=== PATIENT | female | born 1965 | race Caucasian/White ===

== ENCOUNTER → 2016-12-09 | Outpatient (CLI) | payer BC ==
[2016-05-01 17:33] VITALS: BP 143/69
[2016-12-09 18:07] LABS: CRYPTOSPORIDIUM PARVUM ANTIGEN NEGATIVE (NEGATIVE); GIARDIA LAMBLIA ANTIGEN NEGATIVE (NEGATIVE)
== END | disposition home or self-care (01) | DRG 392 ==
LOC: LAB 15:45
PROVIDERS: ATTEND Internal Medicine Gastroenterology
DX: R10.13 Epigastric pain (principal); R19.7 Diarrhea, unspecified; Z79.01 Long term (current) use of anticoagulants; R11.2 Nausea with vomiting, unspecified; R10.84 Generalized abdominal pain; F17.200 Nicotine dependence, unspecified, uncomplicated; G43.909 Migraine, unspecified, not intractable, without status migrainosus; B96.89 Other specified bacterial agents as the cause of diseases classified elsewhere
CPT/HCPCS: 87045; 87328; 87329; 87336; 87427; 87493; 87899

== ENCOUNTER → 2017-01-01 | Outpatient (CLI) | payer BC ==
[2016-05-01 17:33] VITALS: BP 143/69
== END ==
LOC: LAB 09:14
PROVIDERS: ATTEND Internal Medicine Gastroenterology
DX: K25.3 Acute gastric ulcer without hemorrhage or perforation (principal); R11.0 Nausea; F17.200 Nicotine dependence, unspecified, uncomplicated; A04.7 Enterocolitis due to Clostridium difficile; R63.0 Anorexia
CPT/HCPCS: 87493

== ENCOUNTER 2017-02-25 21:57 | Emergency (ER) | payer OTHER ==
[2017-02-25 22:08] VITALS: BP 141/66; BMI 21.2
== END 2017-02-25 23:45 | disposition left against medical advice (07) ==
LOC: ER 22:04
DX: R10.84 Generalized abdominal pain (principal)
CPT/HCPCS: 99281

== ENCOUNTER 2017-12-03 12:10 | Emergency (ER) | payer OTHER ==
[2017-12-03 12:15] VITALS: BP 137/73; BMI 19.8
--- NOTE | 2017-12-03 12:51 | DR.SOBA ---
HPI - Time Seen Time seen: 11:15 - Primary Care Physician Primary Care Physician: AURA KRUSE CART DRIVER - Complaints Chief Complaint:: PT STATES THAT SHE THINKS SHE HAS BRONCHITIS AND SHE HAS SOB, CCC AND THAT SHE WENT TO SEE PAT ON AND SHE GOT 2 SHOTS OF ROCEPHIN AND STEROIDS AND SHE REC'D 2 SHOT'S YESTERDAY , BR Self Treatment fo Chief Complaint: PT WAS PLACED ON LEVAQUIN,,,, - Reviewed Nurses Notes Reviewed: Yes - Source History Provided: Patient - Mode of Arrival Mode of Arrival: Ambulatory - Timing Onset of Chief Complaint: 11/28/17 - Context PE Risk Factors:: None History of:: COPD Currently on:: Inhaled Bronchodilators, Steroids Prehospital Care:: Inhaled B2 - Modifying Factors Worsens:: Exertion - Associated Signs and Symptoms Associated Signs and Symptoms: Cough - If Cough Cough: Productive PMH - PMH Past Medical History: Yes Past Medical History: Dyslipidemia, GERD Past Surgical History: Yes Surgical History: , Cholecystectomy, Hysterectomy, Tonsillectomy - Family History History of Family Medical Conditions: Yes Family Medical History: Cancer - Social History Does patient currently use any type of tobacco product: Yes Type of Tobacco Use: None How many years tobacco product used: 30 Does any household member use tobacco: No Alcohol Use: None Do you use any recreational Drugs:: No Lives With: Family Lives Where: Home - infectious screening In the last 2 months have you had wt loss of >10#?: NO Have you had fever, night sweats or hemotysis?: No Have you traveled outside the country in the last 6 months?: No Isolation: Standard ROS - Review of Systems Constitutional: No Symptoms Reported Eyes: No Symptoms Reported ENTM: No Symptoms Reported Respiratoy: Productive Cough, Short of Breath Cardiovascular: No Symptoms Reported Gastrointestinal/Abdominal: No Symptoms Reported Genitourinary: No Symptoms Reported Neurological: No Symptoms Reported Musculoskeletal: No Symptoms Reported Integumentary: No Symptoms Reported Hematologic/Lymphatic: No Symptoms Reported Endocrine: No Symptoms Reported Psychiatric: No Symptoms Reported All Other Systems: Reviewed and Negative PE - Vital Signs Vitals: Temperature 97.2 F Pulse Rate 112 Respiratory Rate 18 Blood Pressure 137/73 O2 Sat by Pulse Oximetry 95 - General Limitations: No Limitations General Appearance: Alert, In No Apparent Distress - Head Head Exam: Normal Inspection - Eyes Eye exam: Normal Appearance - ENT ENT Exam: Normal Exam - Neck Neck Exam: Normal Inspection, Full ROM, Trachea Midline - Chest Chest Inspection: Normal Inspection - Respiratory Respiratory Exam: Bilateral Rhonchi (bibasilar) - Cardiovascular Cardiovascular Exam: Regular Rate, Normal Rhythm, +S1, +S2 - Abdominal Exam Abdominal Exam: Normal Inspection, Normal Bowel Sounds, Soft - Extremities Extremities Exam: Normal Inspection - Back Back Exam: Normal Inspection - Neurologic Neurological Exam: Alert, Oriented X3 - Psychiatric Psychiatric Exam: Normal Affect, Normal Mood - Skin Skin Exam: Warm, Dry, Intact, Normal Color - Diagnosis Discharge Problem: Dyspnea, Bronchitis - Discharge Plan Disposition: HOME, SELF-CARE Condition: Stable - Follow ups/Referrals Follow ups/Referrals: MAGED KRUSE [Primary Care Provider] - 3 days - Instructions Instructions: Shortness of Breath, Adult, [id number]
--- NOTE | 2017-12-03 13:31 | RAD ---
Examination: AP chest History: SOB Comparison 09/15/2014 Findings: Continued normal transverse heart diameter with essentially clear lungs and pleural spaces. Impression: No significant change or acute chest findings. Reported By:
== END 2017-12-03 13:47 | disposition home or self-care (01) ==
LOC: ER 12:24
DX: J40 Bronchitis, not specified as acute or chronic (principal); R06.00 Dyspnea, unspecified; Z72.0 Tobacco use
CPT/HCPCS: 71045; 99282

== ENCOUNTER 2017-12-13 18:54 | Emergency (ER) | payer OTHER ==
[2017-12-13 19:01] VITALS: BP 130/61; BMI 19.8
--- NOTE | 2017-12-14 11:54 | DR.GENAD ---
HPI - PCP Primary Care Physician: melvina - Complaint/Symptoms Chief Complaint:: pt states" i been hving this sharp pain under my ribs rt here " pt points to below her left ribs - Source History Provided: Patient - Mode of Arrival Mode of Arrival: Ambulatory - Timing Onset of Chief Complaint: 12/13/17 Came on: Suddenly PMH - PMH Past Medical History: Yes Past Medical History: Dyslipidemia, GERD Past Surgical History: Yes Surgical History: , Cholecystectomy, Hysterectomy, Tonsillectomy - Family History History of Family Medical Conditions: Yes Family Medical History: Cancer - Social History Type of Tobacco Use: Cigarettes Does any household member use tobacco: No Alcohol Use: None Do you use any recreational Drugs:: No Lives With: Family Lives Where: Home - infectious screening In the last 2 months have you had wt loss of >10#?: NO Have you had fever, night sweats or hemotysis?: No Have you traveled outside the country in the last 6 months?: No Isolation: Standard PE - Vital Signs Vitals: Temperature 97.7 F Pulse Rate 83 Respiratory Rate 20 Blood Pressure 130/61 O2 Sat by Pulse Oximetry 97 - Discharge Plan Disposition: LWBS After Triage Condition: Stable - Follow ups/Referrals Follow ups/Referrals: MAGED KRUSE [Primary Care Provider] - 3 days - Instructions
== END 2017-12-13 20:44 | disposition left against medical advice (07) ==
LOC: ER 19:19
DX: R07.81 Pleurodynia (principal)
CPT/HCPCS: 99281

== ENCOUNTER 2023-02-03 11:28 | Observation (INO) ==
[2023-02-03 11:46] VITALS: BMI 20.5
[2023-02-03] MEDS ORDERED: DECADRON INJ IVP ONE (11:46)
[2023-02-03] MEDS ORDERED: DUONEB 0.5 MG/3 MG (3 mL) NEB ONE ×2 (11:46→11:54)
[2023-02-03] MEDS ORDERED: DECADRON INJ ONE (11:55)
--- NOTE | 2023-02-03 12:08 | DR.SOBA ---
HPI Time Seen Time Seen by Provider: 02/03/23 11:38 Primary Care Physician Primary Care Physician: SKYE SOUTH Complaints Chief Complaint Doctors Comments: 58 y/o female presents for evaluation. Started feeling ill yesterday. + cough, not productive, fever, chills, aches. + degree of dyspnea. Pt with a h/o COPD, still smokes (up until yesterday), saw [facility] yesterday. Was treated with meds. Feeling worse today. Chief Complaint:: PT C/O HAVING SOB FOR 2 DAYS PT DENIES ANY C/P PT STATES SHE WENT TO SEE SKYE SOUTH AND HE HEARD SOME WHEEZING AND SHE WAS GIVENS MEDS, BR Self Treatment fo Chief Complaint: TESSALON PEARLS , LEVAQUIN , AND STEROID DOSE PACK. COVID-19 Coronavirus risk:travel/contact w/high risk person: No Has patient experienced Coronavirus symptoms: Yes Coronavirus symptoms experienced: Shortness of Breath Reviewed Nurses Notes Reviewed: Yes Source History Provided: Patient Mode of Arrival Mode of Arrival: EMS Timing Onset of Chief Complaint: 02/01/23 PMH PMH Past Medical History: Yes Past Medical History: Depression, Dyslipidemia, GERD and Hypertension Past Surgical History: Yes Surgical History: , Cholecystectomy, Hysterectomy, Ortho Surgery and Tonsillectomy Family History History of Family Medical Conditions: Yes Family Medical History: Cancer, Heart Failure and Hypertension Social History Does patient currently use any type of tobacco product: Yes Have you used tobacco products in the last 12 months: Yes Type of Tobacco Use: Cigarettes How many years tobacco product used: 35 Does any household member use tobacco: No Alcohol Use: None Do you use any recreational Drugs:: No Lives With: Family Lives Where: Home Travel Risk Coronavirus risk:travel/contact w/high risk person: No Has patient experienced Coronavirus symptoms: Yes Coronavirus symptoms experienced: Shortness of Breath Infectious screening In the last 2 months have you had wt loss of >10#?: NO Have you had fever, night sweats or hemotysis?: No Have you traveled outside the country in the last 6 months?: No Isolation: Respiratory ROS Review of Systems Constitutional: Chills, Fever and Weakness Eyes: No Symptoms Reported ENTM: No Symptoms Reported Respiratoy: Non-Productive Cough and Short of Breath Cardiovascular: No Symptoms Reported Gastrointestinal/Abdominal: No Symptoms Reported Genitourinary: No Symptoms Reported Neurological: No Symptoms Reported Musculoskeletal: No Symptoms Reported Integumentary: No Symptoms Reported Hematologic/Lymphatic: No Symptoms Reported Psychiatric: No Symptoms Reported All Other Systems: Reviewed and Negative PE Vital Signs Vitals: Temperature 98.1 F Pulse Rate 62 Respiratory Rate 20 Blood Pressure [Left Arm] 115/55 Blood Pressure 122/57 O2 Sat by Pulse Oximetry 92 General General Appearance: Alert and In No Apparent Distress Eyes Eye exam: PERRL and EOMI ENT ENT Exam: Normal Exam, Normal Oropharynx, Mucous Membranes Moist and TM's Normal Bilaterally Neck Neck Exam: Normal Inspection Respiratory Respiratory Exam: Other (+ bilateral expiratory wheezing); negative Accessory Muscle Use or Respiratory Distress Abdominal Exam Abdominal Exam: Normal Inspection, Normal Bowel Sounds and Soft; negative Tenderness Extremities Extremities Exam: Normal Inspection; negative Edema Neurologic Neurological Exam: Alert, Oriented X3 and CN II-XII Intact; negative Motor Sensory Deficit Skin Skin Exam: Warm and Dry COURSE Treatment Treatment: 58 y/o female , h/o COPD, ill since yesterday. W/u initiated. Pt given IV decadron and duoneb treatment here. 1457 - + for type B flu. CBC, CMP acceptable. CXR - + COPD changes, no obvious pneumonia. Pt taken off O2 - drops to 89% pulse ox at rest. Does not have O2 or nebulizer at home. Discussed with her attending, Dr Trevino, will admit for observation. ROR Labs Reviewed Laboratory Results Reviewed?: Yes Result Diagrams: 02/03/23 11:57 02/03/23 11:57 Laboratory: WBC 7.2 X10^3/uL (3.6-10.0) 02/03/23 11:57 RBC 4.68 X10^6/uL (3.5-5.4) 02/03/23 11:57 Hgb 14.4 g/dL (12.0-16.0) 02/03/23 11:57 Hct 43.0 % (36.0-47.0) 02/03/23 11:57 MCV 91.8 fL (80.0-100.0) 02/03/23 11:57 MCH 30.8 pg (27.0-34.0) 02/03/23 11:57 MCHC 33.5 g/dL (33.0-35.0) 02/03/23 11:57 RDW 14.0 % (11.6-16.5) 02/03/23 11:57 Plt Count 225 X10^3/uL (150.0-450.0) 02/03/23 11:57 MPV 8.6 fL (7.4-11.0) 02/03/23 11:57 Neut % (Auto) 75.5 % (42.0-75.0) H 02/03/23 11:57 Lymph % (Auto) 11.4 % (21.0-51.0) L 02/03/23 11:57 [place] % (Auto) 12.6 % (0.0-13.0) 02/03/23 11:57 Eos % (Auto) 0.0 % (0.9-2.9) L 02/03/23 11:57 Baso % (Auto) 0.5 % (0.2-1.0) 02/03/23 11:57 Neut # (Auto) 5.4 x10^3/uL (2.2-4.8) H 02/03/23 11:57 Lymph # (Auto) 0.8 X10^3/uL (1.3-2.9) L 02/03/23 11:57 Thomas # (Auto) 0.9 x10^3/uL (0.3-0.8) H 02/03/23 11:57 Eos # (Auto) 0.0 x10^3/uL (0.0-0.2) 02/03/23 11:57 Baso # (Auto) 0.0 X10^3/uL (0.0-0.1) 02/03/23 11:57 Absolute Nucleated RBC 0.1 /100WBC 02/03/23 11:57 Sodium 139 mmol/L (136-145) 02/03/23 11:57 Corrected Sodium TNP 02/03/23 11:57 Potassium 4.5 mmol/L (3.5-5.1) 02/03/23 11:57 Chloride 100 mmol/L (98-107) 02/03/23 11:57 Carbon Dioxide 30.7 mmol/L (21-32) 02/03/23 11:57 BUN 22 mg/dL (7-18) H 02/03/23 11:57 Creatinine 1.38 mg/dL (0.55-1.02) H 02/03/23 11:57 Est GFR (MDRD) Af Amer 51 (>60) L 02/03/23 11:57 Est GFR (MDRD) Non-Af 42 (>60) L 02/03/23 11:57 Glucose 96 mg/dL (65-99) 02/03/23 11:57 Calcium 8.8 mg/dL (8.5-10.1) 02/03/23 11:57 Corrected Calcium TNP 02/03/23 11:57 Total Bilirubin 0.20 mg/dL (0.2-1.0) 02/03/23 11:57 AST 73 Units/L (15-37) H 02/03/23 11:57 ALT 97 Units/L (12-78) H 02/03/23 11:57 Alkaline Phosphatase 101 Units/L (46-116) 02/03/23 11:57 Troponin I High Sens 5.2 ng/L (4.0-60.0) 02/03/23 11:57 Total Protein 7.8 g/dL (6.4-8.2) 02/03/23 11:57 Albumin 3.9 g/dL (3.4-5.0) 02/03/23 11:57 Globulin 3.9 g/dL (2.5-4.5) 02/03/23 11:57 Albumin/Globulin Ratio 1.0 Ratio (1.1-2.1) L 02/03/23 11:57 SARS-CoV-2 (PCR) Negative (NEGATIVE) 02/03/23 11:38 Influenza Type A (PCR) Negative (NEGATIVE) 02/03/23 11:38 Influenza Type B (PCR) Positive (NEGATIVE) A 02/03/23 11:38 RSV (PCR) Negative (NEGATIVE) 02/03/23 11:38 Lasb acceptable. + type B flu XRAY XRAY Interpreted by: Both X-ray Results: + COPD, no acute abnormalities Opioid Opioid Risk Tool Age (José Miguel box if 16-45): No History of Preadolescent Sexual Abuse: No Total: 0 Total Score Risk Category: Low Risk Copyright: Christoph NAGEL predicting aberrant behaviors Discharge Plan Diagnosis Discharge Problem: COPD with acute exacerbation, Type B influenza Discharge Plan Patient Disposition: 09 ADMITTED INPATIENT Condition: Stable
[2023-02-03 12:24] LABS: BASOPHILS % (AUTO) 0.5 % (0.2-1.0); HEMOGLOBIN 14.4 g/dL (12.0-16.0); LYMPHOCYTES # (AUTO) 0.8 X10^3/uL (1.3-2.9); LYMPHOCYTES % (AUTO) 11.4 % (21.0-51.0); MEAN CORPUSCULAR HEMOGLOBIN 30.8 pg (27.0-34.0); MEAN CORPUSCULAR HGB CONC 33.5 g/dL (33.0-35.0); MEAN CORPUSCULAR VOLUME 91.8 fL (80.0-100.0); MEAN PLATELET VOLUME 8.6 fL (7.4-11.0); MONOCYTES # (AUTO) 0.9 x10^3/uL (0.3-0.8); MONOCYTES % (AUTO) 12.6 % (0.0-13.0); NEUTROPHILS # (AUTO) 5.4 x10^3/uL (2.2-4.8); NEUTROPHILS % (AUTO) 75.5 % (42.0-75.0); PLATELET COUNT 225 X10^3/uL (150.0-450.0); RED BLOOD COUNT 4.68 X10^6/uL (3.5-5.4); WHITE BLOOD COUNT 7.2 X10^3/uL (3.6-10.0)
[2023-02-03 12:38] LABS: ALANINE AMINOTRANSFERASE 97 Units/L (12-78); ALBUMIN 3.9 g/dL (3.4-5.0); ALKALINE PHOSPHATASE 101 Units/L (46-116); ASPARTATE AMINO TRANSFERASE 73 Units/L (15-37); BLOOD UREA NITROGEN 22 mg/dL (7-18); CALCIUM 8.8 mg/dL (8.5-10.1); CARBON DIOXIDE 30.7 mmol/L (21-32); CHLORIDE 100 mmol/L (98-107); CREATININE 1.38 mg/dL (0.55-1.02); GLUCOSE 96 mg/dL (65-99); POTASSIUM 4.5 mmol/L (3.5-5.1); SODIUM 139 mmol/L (136-145); TOTAL PROTEIN 7.8 g/dL (6.4-8.2); eGFR NON BLACK RACES 42 (>60)
[2023-02-03] MEDS ORDERED: TAMIFLU PO STA (15:22)
--- NOTE | 2023-02-03 15:26 | RAD ---
HISTORYSOB GERD, DYSLIPIDEMIA SX: CSECTION, ESTEFANIA, HYSTERECTOMY, TONSILLECTOMY, ORTHOSTUDYCHEST, 1 VIEWCOMPARISONChest x-ray 05/21/2022FINDINGSThe heart is normal in size. The pulmonary vasculature is within normal limits. The lungs appear clear. No pneumothorax, pleural effusion, or focal consolidation. No acute osseous abnormality.IMPRESSIONNo acute cardiopulmonary findings .Electronically signed by: Marcin Victor (February 03, 2023 15:22:56)
[2023-02-03] MEDS ORDERED: TAMIFLU PO ONE (15:28)
[2023-02-03] MEDS ORDERED: NS 250 ML IV 250 ML IV ONE (16:40)
[2023-02-03] MEDS: DUONEB 0.5 MG/3 MG (3 mL) NEB SCH ×2 (16:40→21:00)
--- NOTE | 2023-02-03 16:41 | DR.H&P ---
H&P History & Physical for Day of: H&P Date: 02/03/23 Chief Complaint Chief Complaint: Shortness of breath x2 days. Allergies Allergies Allergy/AdvReac Type Severity Reaction Status Date / Time metronidazole [From Flagyl] Allergy Unknown Verified 02/02/23 09:47 venlafaxine [From Effexor] Allergy Verified 02/02/23 09:47 History of Present Illness History of Present Illness: This is a 58-year-old white female who I saw in the office yesterday and started treating her for COPD exacerbation. She woke up yesterday morning with these acute symptoms. I started treating her with Levaquin, Medrol Dosepak and Tussionex cough medicine. I did a flu swab here in the office but however it was negative for type a and B flu. She was getting worse today and more hypoxic so she went to the emergency department where they tested her again and she was positive for type B influenza. She was satting 89% on room air. Because of that we elected to go ahead and admit her to the hospital to give her supplemental O2 and started on Tamiflu. She is a longtime smoker and also has COPD exacerbation along with this influenza going to treat her with IV Rocephin and Levaquin along with IV Solu-Medrol. She is receiving jet nebs and we will continue to do this until tomorrow. She is feeling better and oxygenating better we might discharge her in tomorrow morning if not we will plan on the following day. Past Medical History Past Medical History: Depression, Dyslipidemia, GERD and Hypertension Past Surgical History Surgical History: , Cholecystectomy, Hysterectomy, Ortho Surgery and Tonsillectomy Family History Family Medical History: Cancer, Heart Failure and Hypertension Social History Does patient currently use any type of tobacco product: Yes Have you used tobacco products in the last 12 months: Yes Type of Tobacco Use: Cigarettes How many years tobacco product used: 35 Does any household member use tobacco: No Alcohol Use: None Medications Home Medications: metronidazole [From Flagyl] Allergy (Unknown, Verified 02/02/23 09:47) venlafaxine [From Effexor] Allergy (Verified 02/02/23 09:47) CONTINUE taking the following medications albuterol sulfate 90 mcg/actuation aerosol inhaler 1 puff inhalation Q4-6H PRN wheezing 02/03/23 [History] benzonatate 200 mg capsule 1 cap PO TID PRN 02/03/23 [History] budesonide-formoterol HFA 160 mcg-4.5 mcg/actuation aerosol inhaler 2 puff inhalation BID 02/03/23 [History] bupropion HCl 150 mg tablet,12 hr sustained-release 1 tab PO QDAY 02/03/23 [History] clonazepam 1 mg tablet 1 tab PO QPM PRN 02/03/23 [History] ergocalciferol (vitamin D2) 1,250 mcg (50,000 unit) capsule 1 cap PO Q2W 02/03/23 [History] estradiol 10 mcg vaginal tablet 1 tab vaginal 2XW 02/03/23 [History] levofloxacin 500 mg tablet 1 tab PO QDAY 02/03/23 [History] methylprednisolone 4 mg tablets in a dose pack 1 tab PO UD DOSE PK 02/03/23 [History] metoprolol succinate 50 mg tablet,extended release 24 hr 1 tab PO QDAY 02/03/23 [History] montelukast 10 mg tablet 1 tab PO QPM 02/03/23 [History] pantoprazole 40 mg tablet,delayed release 1 tab PO BID 02/03/23 [History] progesterone micronized 100 mg capsule 1 cap PO QPM 02/03/23 [History] sucralfate 1 gram tablet 1 g PO TID 02/03/23 [History] Labs Result Diagrams: 02/03/23 11:57 02/03/23 11:57 Labs: Laboratory WBC 7.2 X10^3/uL (3.6-10.0) 02/03/23 11:57 RBC 4.68 X10^6/uL (3.5-5.4) 02/03/23 11:57 Hgb 14.4 g/dL (12.0-16.0) 02/03/23 11:57 Hct 43.0 % (36.0-47.0) 02/03/23 11:57 MCV 91.8 fL (80.0-100.0) 02/03/23 11:57 MCH 30.8 pg (27.0-34.0) 02/03/23 11:57 MCHC 33.5 g/dL (33.0-35.0) 02/03/23 11:57 RDW 14.0 % (11.6-16.5) 02/03/23 11:57 Plt Count 225 X10^3/uL (150.0-450.0) 02/03/23 11:57 MPV 8.6 fL (7.4-11.0) 02/03/23 11:57 Neut % (Auto) 75.5 % (42.0-75.0) H 02/03/23 11:57 Lymph % (Auto) 11.4 % (21.0-51.0) L 02/03/23 11:57 [place] % (Auto) 12.6 % (0.0-13.0) 02/03/23 11:57 Eos % (Auto) 0.0 % (0.9-2.9) L 02/03/23 11:57 Baso % (Auto) 0.5 % (0.2-1.0) 02/03/23 11:57 Neut # (Auto) 5.4 x10^3/uL (2.2-4.8) H 02/03/23 11:57 Lymph # (Auto) 0.8 X10^3/uL (1.3-2.9) L 02/03/23 11:57 [place] # (Auto) 0.9 x10^3/uL (0.3-0.8) H 02/03/23 11:57 Eos # (Auto) 0.0 x10^3/uL (0.0-0.2) 02/03/23 11:57 Baso # (Auto) 0.0 X10^3/uL (0.0-0.1) 02/03/23 11:57 Absolute Nucleated RBC 0.1 /100WBC 02/03/23 11:57 Sodium 139 mmol/L (136-145) 02/03/23 11:57 Corrected Sodium TNP 02/03/23 11:57 Potassium 4.5 mmol/L (3.5-5.1) 02/03/23 11:57 Chloride 100 mmol/L (98-107) 02/03/23 11:57 Carbon Dioxide 30.7 mmol/L (21-32) 02/03/23 11:57 BUN 22 mg/dL (7-18) H 02/03/23 11:57 Creatinine 1.38 mg/dL (0.55-1.02) H 02/03/23 11:57 Est GFR (MDRD) Af Amer 51 (>60) L 02/03/23 11:57 Est GFR (MDRD) Non-Af 42 (>60) L 02/03/23 11:57 Glucose 96 mg/dL (65-99) 02/03/23 11:57 Calcium 8.8 mg/dL (8.5-10.1) 02/03/23 11:57 Corrected Calcium TNP 02/03/23 11:57 Total Bilirubin 0.20 mg/dL (0.2-1.0) 02/03/23 11:57 AST 73 Units/L (15-37) H 02/03/23 11:57 ALT 97 Units/L (12-78) H 02/03/23 11:57 Alkaline Phosphatase 101 Units/L (46-116) 02/03/23 11:57 Troponin I High Sens 5.2 ng/L (4.0-60.0) 02/03/23 11:57 Total Protein 7.8 g/dL (6.4-8.2) 02/03/23 11:57 Albumin 3.9 g/dL (3.4-5.0) 02/03/23 11:57 Globulin 3.9 g/dL (2.5-4.5) 02/03/23 11:57 Albumin/Globulin Ratio 1.0 Ratio (1.1-2.1) L 02/03/23 11:57 SARS-CoV-2 (PCR) Negative (NEGATIVE) 02/03/23 11:38 Influenza Type A (PCR) Negative (NEGATIVE) 02/03/23 11:38 Influenza Type B (PCR) Positive (NEGATIVE) A 02/03/23 11:38 RSV (PCR) Negative (NEGATIVE) 02/03/23 11:38 Review of Systems Constitutional: Fever, Chills, Sweats, Weakness and Malaise Eyes: No Symptoms Reported ENT: Nose Discharge and Nose Congestion Respiratory: Cough, Shortness of Breath, SOB with Excertion and Sputum Cardiovascular: No Symptoms Reported Gastrointestinal: Nausea Genitourinary: No Symptoms Reported Musculoskeletal: No Symptoms Reported Skin: No Symptoms Reported Neurological: No Symptoms Reported Physical Exam Vital Signs: Temperature 98.1 F Pulse Rate 59 Respiratory Rate 20 Blood Pressure [Left Arm] 115/55 Blood Pressure 122/57 O2 Sat by Pulse Oximetry 96 Oriented: Normal, Time, Person and Place Eyes: Normal Nose: Discharge Throat: Normal Respiratory: Diminished Throughout, Rhonchi Throughout and Wheezes Throughout Cardiovascular: Normal : negative Dysuria Auscultation: Bowel Sounds: Normal Palpation: Normal Tenderness: Normal Skin: Normal Musculoskeletal: Normal Psychiatric: Normal Mood Description: Calm Affect: Normal Speech Pattern: Clear and Appropriate Assessment/Plan (1) Influenza due to influenza virus, type B: Status: Acute Plan: Tamiflu 75 mg twice daily. (2) COPD exacerbation: Status: Acute Plan: Jet nebs, IV Solu-Medrol, Levaquin and Rocephin. (3) Mixed hyperlipidemia: Status: None (4) Gastroesophageal reflux disease without esophagitis: Status: None Plan: Resume pantoprazole 40 mg twice daily. Review H&P Reviewed: Yes Patient was examined?: Yes
[2023-02-03] MEDS: ROCEPHIN VIAL 1 GRAM 1 G in NS 100 ML IV 100 ML IV SCH (16:43)
[2023-02-03] MEDS: LEVAQUIN PREMIX IV 500 MG 500 MG/100 ML BAG IV SCH (17:38)
[2023-02-03] MEDS ORDERED: PULMICORT NEB TX 0.5 MG NEB ONE (19:51)
[2023-02-03] MEDS: LIPITOR TAB 20 MG PO SCH (20:34)
[2023-02-03] MEDS: PULMICORT NEB TX 0.5 MG NEB SCH (21:00)
[2023-02-03] MEDS: TAMIFLU PO SCH (21:27)
[2023-02-03] MEDS: SOLU-Medrol 40 MG VIAL IVP SCH (21:27)
[2023-02-03] MEDS: SINGULAIR TAB 10 MG PO SCH (21:27)
[2023-02-03] MEDS: CARAFATE PO SCH (21:30)
[2023-02-03] MEDS: PROTONIX TAB 40 MG PO SCH (21:30)
[2023-02-03] MEDS: KLONOPIN TAB 1 MG PO PRN (21:31)
[2023-02-03] MEDS ORDERED: DUONEB 0.5 MG/3 MG (3 mL) NEB SCH (22:00)
[2023-02-04] MEDS: DUONEB 0.5 MG/3 MG (3 mL) NEB SCH ×6 (03:41→20:45)
[2023-02-04] MEDS: SOLU-Medrol 40 MG VIAL IVP SCH ×3 (05:16→21:09)
[2023-02-04] MEDS: CARAFATE PO SCH ×3 (05:16→21:09)
[2023-02-04 05:18] LABS: BASOPHILS % (AUTO) 0.2 % (0.2-1.0); HEMATOCRIT 37.7 % (36.0-47.0); HEMOGLOBIN 12.9 g/dL (12.0-16.0); LYMPHOCYTES # (AUTO) 0.5 X10^3/uL (1.3-2.9); LYMPHOCYTES % (AUTO) 7.9 % (21.0-51.0); MEAN CORPUSCULAR HEMOGLOBIN 30.9 pg (27.0-34.0); MEAN CORPUSCULAR HGB CONC 34.2 g/dL (33.0-35.0); MEAN CORPUSCULAR VOLUME 90.3 fL (80.0-100.0); MEAN PLATELET VOLUME 8.7 fL (7.4-11.0); MONOCYTES # (AUTO) 0.3 x10^3/uL (0.3-0.8); MONOCYTES % (AUTO) 4.8 % (0.0-13.0); NEUTROPHILS # (AUTO) 5.7 x10^3/uL (2.2-4.8); NEUTROPHILS % (AUTO) 87.1 % (42.0-75.0); PLATELET COUNT 224 X10^3/uL (150.0-450.0); RED BLOOD COUNT 4.17 X10^6/uL (3.5-5.4); WHITE BLOOD COUNT 6.6 X10^3/uL (3.6-10.0)
[2023-02-04 05:39] LABS: ALANINE AMINOTRANSFERASE 65 Units/L (12-78); ALBUMIN 3.3 g/dL (3.4-5.0); ALKALINE PHOSPHATASE 73 Units/L (46-116); ASPARTATE AMINO TRANSFERASE 36 Units/L (15-37); BLOOD UREA NITROGEN 22 mg/dL (7-18); CALCIUM 8.5 mg/dL (8.5-10.1); CARBON DIOXIDE 28.7 mmol/L (21-32); CHLORIDE 103 mmol/L (98-107); COR CA(FOR HYPOALB) 9.1 mg/dL (8.5-10.1); COR NA(FOR HYPERGLY) 141 mmol/L (136-145); GLUCOSE 139 mg/dL (65-99); POTASSIUM 4.1 mmol/L (3.5-5.1); SODIUM 140 mmol/L (136-145); TOTAL PROTEIN 6.8 g/dL (6.4-8.2); eGFR NON BLACK RACES 54 (>60)
[2023-02-04] MEDS: TOPROL XL PO SCH (08:30)
[2023-02-04] MEDS: WELLBUTRIN SR 150 MG (BID) PO SCH (08:30)
[2023-02-04] MEDS: PROTONIX TAB 40 MG PO SCH ×2 (08:30→21:09)
[2023-02-04] MEDS: ROCEPHIN VIAL 1 GRAM 1 G in NS 100 ML IV 100 ML IV SCH (08:31)
[2023-02-04] MEDS: TAMIFLU PO SCH ×2 (08:31→21:09)
[2023-02-04] MEDS: PULMICORT NEB TX 0.5 MG NEB SCH ×2 (08:33→20:45)
--- NOTE | 2023-02-04 08:43 | PCM.PROG ---
Progress Note Progress Note for Day of Date of Exam: 02/04/23 Subjective Subjective: Patient is feeling better this morning. She still does not to her normal baseline she reports. Her dyspnea is improved overall but she still having some. She had no acute problems since admission yesterday afternoon. I talked to her about pulmonary rehabilitation for outpatient treatment and she is interested in doing that. We will get her set up before she is discharged from the hospital. The patient continues to improve that she is doing suspect I can discharge her tomorrow morning. Past Medical Family Social History Past Med/Fam/Surg Hx: No changes since H&P Allergies: Allergies metronidazole [From Flagyl] Allergy (Unknown, Verified 02/02/23 09:47) Reason: Drug allergy venlafaxine [From Effexor] Allergy (Verified 02/02/23 09:47) Review of Systems ROS: No change since H&P Vital Signs and I&O's Vital Signs: Temperature 97.7 F Pulse Rate [Right Brachial] 82 Pulse Rate 81 Respiratory Rate 20 Blood Pressure [Right Arm] 114/68 Blood Pressure [Left Arm] 115/55 Blood Pressure 122/57 O2 Sat by Pulse Oximetry 94 Intake and Output: Intake & Output 02/01/23 02/02/23 02/03/23 02/04/23 11:59 11:59 11:59 11:59 Intake Total 1350 / 1350 Balance 1350 / 1350 Physical Exam Oriented: Normal, Time, Person and Place Eyes: Normal Nose: Discharge Throat: Normal Respiratory: Generalized and Diminished Cardiovascular: Normal : negative Dysuria Auscultation: Bowel Sounds: Normal Tenderness: Normal Skin: Normal Musculoskeletal: Normal Psychiatric: Normal Mood Description: Calm Affect: Normal Speech Pattern: Clear and Appropriate Laboratory and Diagnostics Result Diagrams: 02/04/23 04:55 02/04/23 04:55 Labs: Laboratory WBC 6.6 X10^3/uL (3.6-10.0) 02/04/23 04:55 RBC 4.17 X10^6/uL (3.5-5.4) 02/04/23 04:55 Hgb 12.9 g/dL (12.0-16.0) 02/04/23 04:55 Hct 37.7 % (36.0-47.0) 02/04/23 04:55 MCV 90.3 fL (80.0-100.0) 02/04/23 04:55 MCH 30.9 pg (27.0-34.0) 02/04/23 04:55 MCHC 34.2 g/dL (33.0-35.0) 02/04/23 04:55 RDW 14.0 % (11.6-16.5) 02/04/23 04:55 Plt Count 224 X10^3/uL (150.0-450.0) 02/04/23 04:55 MPV 8.7 fL (7.4-11.0) 02/04/23 04:55 Neut % (Auto) 87.1 % (42.0-75.0) H 02/04/23 04:55 Lymph % (Auto) 7.9 % (21.0-51.0) L 02/04/23 04:55 [place] % (Auto) 4.8 % (0.0-13.0) 02/04/23 04:55 Eos % (Auto) 0.0 % (0.9-2.9) L 02/04/23 04:55 Baso % (Auto) 0.2 % (0.2-1.0) 02/04/23 04:55 Neut # (Auto) 5.7 x10^3/uL (2.2-4.8) H 02/04/23 04:55 Lymph # (Auto) 0.5 X10^3/uL (1.3-2.9) L 02/04/23 04:55 [place] # (Auto) 0.3 x10^3/uL (0.3-0.8) 02/04/23 04:55 Eos # (Auto) 0.0 x10^3/uL (0.0-0.2) 02/04/23 04:55 Baso # (Auto) 0.0 X10^3/uL (0.0-0.1) 02/04/23 04:55 Absolute Nucleated RBC 0.0 /100WBC 02/04/23 04:55 Sodium 140 mmol/L (136-145) 02/04/23 04:55 Corrected Sodium 141 mmol/L (136-145) 02/04/23 04:55 Potassium 4.1 mmol/L (3.5-5.1) 02/04/23 04:55 Chloride 103 mmol/L (98-107) 02/04/23 04:55 Carbon Dioxide 28.7 mmol/L (21-32) 02/04/23 04:55 BUN 22 mg/dL (7-18) H 02/04/23 04:55 Creatinine 1.10 mg/dL (0.55-1.02) H 02/04/23 04:55 Est GFR (MDRD) Af Amer > 60 (>60) 02/04/23 04:55 Est GFR (MDRD) Non-Af 54 (>60) L 02/04/23 04:55 Glucose 139 mg/dL (65-99) H 02/04/23 04:55 POC Glucose (mg/dL) 151 mg/dL (65-99) H 02/04/23 05:18 Calcium 8.5 mg/dL (8.5-10.1) 02/04/23 04:55 Corrected Calcium 9.1 mg/dL (8.5-10.1) 02/04/23 04:55 Total Bilirubin 0.10 mg/dL (0.2-1.0) L 02/04/23 04:55 AST 36 Units/L (15-37) 02/04/23 04:55 ALT 65 Units/L (12-78) 02/04/23 04:55 Alkaline Phosphatase 73 Units/L (46-116) 02/04/23 04:55 Troponin I High Sens 5.2 ng/L (4.0-60.0) 02/03/23 11:57 Total Protein 6.8 g/dL (6.4-8.2) 02/04/23 04:55 Albumin 3.3 g/dL (3.4-5.0) L 02/04/23 04:55 Globulin 3.5 g/dL (2.5-4.5) 02/04/23 04:55 Albumin/Globulin Ratio 0.9 Ratio (1.1-2.1) L 02/04/23 04:55 SARS-CoV-2 (PCR) Negative (NEGATIVE) 02/03/23 11:38 Influenza Type A (PCR) Negative (NEGATIVE) 02/03/23 11:38 Influenza Type B (PCR) Positive (NEGATIVE) A 02/03/23 11:38 RSV (PCR) Negative (NEGATIVE) 02/03/23 11:38 Radiology Reviewed: Yes Plan (1) Influenza due to influenza virus, type B: Status: Acute Narrative Support Text: Overall improved since yesterday afternoon. Plan: Tamiflu 75 mg twice daily for total of 5 days. (2) COPD exacerbation: Status: Acute Narrative Support Text: Patient is overall improved since admission. Auscultation reveals she had no wheezing this morning on exam but she does have diminished air entry bilaterally. Plan: Jet nebs, IV Solu-Medrol, Levaquin and Rocephin. (3) Mixed hyperlipidemia: Status: None Plan: Continue atorvastatin. (4) Gastroesophageal reflux disease without esophagitis: Status: None Plan: Resume pantoprazole 40 mg twice daily. (5) Dehydration: Status: Acute Narrative Support Text: Patient's dehydration has improved since admission yesterday. Dehydration was present on admission yesterday. Plan: Continue IV hydration.
[2023-02-04] MEDS: LEVAQUIN PREMIX IV 500 MG 500 MG/100 ML BAG IV SCH (09:27)
[2023-02-04] MEDS: TYLENOL 325 MG TAB PO PRN ×2 (09:30→19:20)
[2023-02-04] MEDS: LIPITOR TAB 20 MG PO SCH (21:09)
[2023-02-04] MEDS: KLONOPIN TAB 1 MG PO PRN (21:09)
[2023-02-04] MEDS: SINGULAIR TAB 10 MG PO SCH (21:09)
[2023-02-05] MEDS: DUONEB 0.5 MG/3 MG (3 mL) NEB SCH ×4 (01:00→13:37)
[2023-02-05] MEDS: CARAFATE PO SCH (05:16)
[2023-02-05] MEDS: SOLU-Medrol 40 MG VIAL IVP SCH (05:16)
[2023-02-05 06:09] LABS: BASOPHILS # (AUTO) 0.1 X10^3/uL (0.0-0.1); BASOPHILS % (AUTO) 0.9 % (0.2-1.0); EOSINOPHILS # (AUTO) 0.1 x10^3/uL (0.0-0.2); EOSINOPHILS % (AUTO) 0.7 % (0.9-2.9); HEMATOCRIT 40.4 % (36.0-47.0); HEMOGLOBIN 13.5 g/dL (12.0-16.0); LYMPHOCYTES # (AUTO) 0.6 X10^3/uL (1.3-2.9); LYMPHOCYTES % (AUTO) 6.5 % (21.0-51.0); MEAN CORPUSCULAR HEMOGLOBIN 30.5 pg (27.0-34.0); MEAN CORPUSCULAR HGB CONC 33.5 g/dL (33.0-35.0); MEAN CORPUSCULAR VOLUME 91.1 fL (80.0-100.0); MEAN PLATELET VOLUME 8.7 fL (7.4-11.0); MONOCYTES # (AUTO) 0.2 x10^3/uL (0.3-0.8); MONOCYTES % (AUTO) 2.7 % (0.0-13.0); NEUTROPHILS # (AUTO) 8.2 x10^3/uL (2.2-4.8); NEUTROPHILS % (AUTO) 89.2 % (42.0-75.0); PLATELET COUNT 217 X10^3/uL (150.0-450.0); RED BLOOD COUNT 4.44 X10^6/uL (3.5-5.4); RED CELL DISTRIBUTION WIDTH 14.3 % (11.6-16.5); WHITE BLOOD COUNT 9.2 X10^3/uL (3.6-10.0)
[2023-02-05 06:19] LABS: ALANINE AMINOTRANSFERASE 50 Units/L (12-78); ALBUMIN 3.5 g/dL (3.4-5.0); ALKALINE PHOSPHATASE 65 Units/L (46-116); ASPARTATE AMINO TRANSFERASE 26 Units/L (15-37); BLOOD UREA NITROGEN 20 mg/dL (7-18); CALCIUM 8.5 mg/dL (8.5-10.1); CARBON DIOXIDE 27.1 mmol/L (21-32); CHLORIDE 103 mmol/L (98-107); COR NA(FOR HYPERGLY) 143 mmol/L (136-145); CREATININE 1.25 mg/dL (0.55-1.02); GLUCOSE 141 mg/dL (65-99); POTASSIUM 3.5 mmol/L (3.5-5.1); SODIUM 142 mmol/L (136-145); TOTAL PROTEIN 7.1 g/dL (6.4-8.2); eGFR NON BLACK RACES 47 (>60)
[2023-02-05 06:43] LABS: BAND NEUTROPHILS % 3 % (0-10); PLATELET MORPHOLOGY COMMENT NORMAL (NORMAL)
--- NOTE | 2023-02-05 07:37 | RAD ---
HISTORYCOPD EXACERBATION, INFLUENZA BSTUDYCHEST, 1 [id number].TECHNIQUEPA or AP view of the chestFINDINGSCardiac and mediastinal contours are within normal limits. Lungs are hyperexpanded with apical predominant lucencies. No consolidation or segmental lung collapse. No definite pleural effusion or pneumothorax.IMPRESSIONNo acute pulmonary process. Background of COPD. If there is need to evaluate for pulmonary nodules, CT chest is recommended.Electronically signed by: Charly Garcia (February 05, 2023 07:35:25)
[2023-02-05 08:26] VITALS: BP 109/52; TEMP 97.6
[2023-02-05] MEDS: PULMICORT NEB TX 0.5 MG NEB SCH (08:48)
[2023-02-05 08:49] VITALS: PULSE 85; O2SAT 96
[2023-02-05] MEDS: LEVAQUIN PREMIX IV 500 MG 500 MG/100 ML BAG IV SCH (09:10)
[2023-02-05] MEDS: PROTONIX TAB 40 MG PO SCH (09:10)
[2023-02-05] MEDS: TAMIFLU PO SCH (09:11)
[2023-02-05] MEDS: ROCEPHIN VIAL 1 GRAM 1 G in NS 100 ML IV 100 ML IV SCH (09:11)
[2023-02-05] MEDS: TOPROL XL PO SCH (09:11)
[2023-02-05] MEDS: WELLBUTRIN SR 150 MG (BID) PO SCH (09:14)
--- NOTE | 2023-02-05 15:47 | PCM.DCPLAN ---
DISCHARGE SUMMARY Admission Date Date of Admission: 02/03/23 Discharge Date Discharge Date: 02/05/23 Admission Diagnoses (1) Influenza due to influenza virus, type B: Status: Acute (2) Hypoxia: Status: Acute (3) COPD exacerbation: Status: Acute (4) Dehydration: Status: Acute (5) Mixed hyperlipidemia: Status: None (6) Gastroesophageal reflux disease without esophagitis: Status: None Discharge Diagnoses Discharge Diagnosis: 1. Influenza type B 2. COPD exacerbation 3. Hypoxia 4. Dehydration 5. Mixed hyperlipidemia 6. Dehydration Discharge Medications Discharge Medications: Home Medication List albuterol sulfate 90 mcg/actuation aerosol inhaler 1 puff inhalation Q4-6H PRN wheezing 02/03/23 [History] benzonatate 200 mg capsule 1 cap PO TID PRN 02/03/23 [History] budesonide-formoterol HFA 160 mcg-4.5 mcg/actuation aerosol inhaler 2 puff inhalation BID 02/03/23 [History] bupropion HCl 150 mg tablet,12 hr sustained-release 1 tab PO QDAY 02/03/23 [History] clonazepam 1 mg tablet 1 tab PO QPM PRN 02/03/23 [History] ergocalciferol (vitamin D2) 1,250 mcg (50,000 unit) capsule 1 cap PO Q2W 02/03/23 [History] estradiol 10 mcg vaginal tablet 1 tab vaginal 2XW 02/03/23 [History] levofloxacin 500 mg tablet 1 tab PO QDAY 02/03/23 [History] methylprednisolone 4 mg tablets in a dose pack 1 tab PO UD DOSE PK 02/03/23 [History] metoprolol succinate 50 mg tablet,extended release 24 hr 1 tab PO QDAY 02/03/23 [History] montelukast 10 mg tablet 1 tab PO QPM 02/03/23 [History] pantoprazole 40 mg tablet,delayed release 1 tab PO BID 02/03/23 [History] progesterone micronized 100 mg capsule 1 cap PO QPM 02/03/23 [History] sucralfate 1 gram tablet 1 g PO TID 02/03/23 [History] Prescriptions: Hospital Course Vital Signs: Temperature 97.6 F Pulse Rate [Right Brachial] 65 Pulse Rate 85 Respiratory Rate 20 Blood Pressure [Right Arm] 109/52 Blood Pressure [Left Arm] 115/55 Blood Pressure 122/57 O2 Sat by Pulse Oximetry 96 Latest Lab Results: Laboratory Last Values WBC 9.2 X10^3/uL (3.6-10.0) 02/05/23 05:33 RBC 4.44 X10^6/uL (3.5-5.4) 02/05/23 05:33 Hgb 13.5 g/dL (12.0-16.0) 02/05/23 05:33 Hct 40.4 % (36.0-47.0) 02/05/23 05:33 MCV 91.1 fL (80.0-100.0) 02/05/23 05:33 MCH 30.5 pg (27.0-34.0) 02/05/23 05:33 MCHC 33.5 g/dL (33.0-35.0) 02/05/23 05:33 RDW 14.3 % (11.6-16.5) 02/05/23 05:33 Plt Count 217 X10^3/uL (150.0-450.0) 02/05/23 05:33 Plt Count Comment Adequate (ADEQUATE) 02/05/23 05:33 MPV 8.7 fL (7.4-11.0) 02/05/23 05:33 Neut % (Auto) 89.2 % (42.0-75.0) H 02/05/23 05:33 Lymph % (Auto) 6.5 % (21.0-51.0) L 02/05/23 05:33 [place] % (Auto) 2.7 % (0.0-13.0) 02/05/23 05:33 Eos % (Auto) 0.7 % (0.9-2.9) L 02/05/23 05:33 Baso % (Auto) 0.9 % (0.2-1.0) 02/05/23 05:33 Neut # (Auto) 8.2 x10^3/uL (2.2-4.8) H 02/05/23 05:33 Lymph # (Auto) 0.6 X10^3/uL (1.3-2.9) L 02/05/23 05:33 [place] # (Auto) 0.2 x10^3/uL (0.3-0.8) L 02/05/23 05:33 Eos # (Auto) 0.1 x10^3/uL (0.0-0.2) 02/05/23 05:33 Baso # (Auto) 0.1 X10^3/uL (0.0-0.1) 02/05/23 05:33 Absolute Nucleated RBC 0.0 /100WBC 02/05/23 05:33 Total Counted 100 02/05/23 05:33 Neutrophils % (Manual) 85 % (39-76) H 02/05/23 05:33 Band Neutrophils % 3 % (0-10) 02/05/23 05:33 Lymphocytes % (Manual) 10 % (13-43) L 02/05/23 05:33 Monocytes % (Manual) 2 % (4-9) L 02/05/23 05:33 Plt Morphology Comment Normal (NORMAL) 02/05/23 05:33 RBC Morphology Normal (NORMAL) 02/05/23 05:33 Sodium 142 mmol/L (136-145) 02/05/23 05:33 Corrected Sodium 143 mmol/L (136-145) 02/05/23 05:33 Potassium 3.5 mmol/L (3.5-5.1) 02/05/23 05:33 Chloride 103 mmol/L (98-107) 02/05/23 05:33 Carbon Dioxide 27.1 mmol/L (21-32) 02/05/23 05:33 BUN 20 mg/dL (7-18) H 02/05/23 05:33 Creatinine 1.25 mg/dL (0.55-1.02) H 02/05/23 05:33 Est GFR (MDRD) Af Amer 57 (>60) L 02/05/23 05:33 Est GFR (MDRD) Non-Af 47 (>60) L 02/05/23 05:33 Glucose 141 mg/dL (65-99) H 02/05/23 05:33 POC Glucose (mg/dL) 142 mg/dL (65-99) H 02/05/23 05:26 Calcium 8.5 mg/dL (8.5-10.1) 02/05/23 05:33 Corrected Calcium TNP 02/05/23 05:33 Total Bilirubin 0.10 mg/dL (0.2-1.0) L 02/05/23 05:33 AST 26 Units/L (15-37) 02/05/23 05:33 ALT 50 Units/L (12-78) 02/05/23 05:33 Alkaline Phosphatase 65 Units/L (46-116) 02/05/23 05:33 Troponin I High Sens 5.2 ng/L (4.0-60.0) 02/03/23 11:57 Total Protein 7.1 g/dL (6.4-8.2) 02/05/23 05:33 Albumin 3.5 g/dL (3.4-5.0) 02/05/23 05:33 Globulin 3.6 g/dL (2.5-4.5) 02/05/23 05:33 Albumin/Globulin Ratio 1.0 Ratio (1.1-2.1) L 02/05/23 05:33 SARS-CoV-2 (PCR) Negative (NEGATIVE) 02/03/23 11:38 Influenza Type A (PCR) Negative (NEGATIVE) 02/03/23 11:38 Influenza Type B (PCR) Positive (NEGATIVE) A 02/03/23 11:38 RSV (PCR) Negative (NEGATIVE) 02/03/23 11:38 Hospital Course: This is a 58-year-old white female who I saw in the office yesterday and started treating her for COPD exacerbation. She woke up yesterday morning with these acute symptoms. I started treating her with Levaquin, Medrol Dosepak and Tussionex cough medicine. I did a flu swab here in the office but however it was negative for type a and B flu. She was getting worse today and more hypoxic so she went to the emergency department where they tested her again and she was positive for type B influenza. She was satting 89% on room air. Because of that we elected to go ahead and admit her to the hospital to give her supplement al O2 and started on Tamiflu. She is a longtime smoker and also has COPD exacerbation along with this influenza going to treat her with IV Rocephin and Levaquin along with IV Solu-Medrol. She is receiving jet nebs and we will continue to do this until tomorrow. She is feeling better and oxygenating better we might discharge her in tomorrow morning if not we will plan on the following day. The next day the patient was feeling better and breathing much easier she reports. She stated that the supplemental O2 made a tremendous difference in her breathing. We continued her on p.o. Tamiflu, jet nebs and IV Levaquin. I discussed seeing pulmonary rehabilitation as an outpatient and she is interested in wants to do this. Home with next morning the patient was still feeling better however we had her take her oxygen off and walk around the room and she would drop down to 88%. She also was 88% is sitting around the room on room air. We I have arranged for her to have home O2 to go home with today. Patient will be discharged home today in stable condition. We will be discharging her on Levaquin and a Medrol Dosepak she is instructed to finish up what she had started earlier in the week when I saw her in the office. She she also will be given a prescription for Tamiflu 75 mg twice daily number 6 tablets and take them until they are completely done. We are also arranging her to have home oxygen since delivered today because of her hypoxia. She can resume her regular home medications as before. I will see her for hospital follow-up within a week of discharge. She can call my office and come in sooner if she is having trouble with her breathing or any other problems.
== END 2023-02-05 14:40 | disposition home or self-care (01) ==
LOC: ER 11:28 → MED/SURG 11:28
PROVIDERS: ADMIT Family Medicine; ATTEND Family Medicine

== ENCOUNTER 2023-09-23 07:26 | Observation (INO) ==
[2023-09-23 07:42] VITALS: BMI 19.9
[2023-09-23] MEDS ORDERED: TORADOL 30 MG VIAL IM ONE (07:55)
[2023-09-23] MEDS ORDERED: NS 1,000 ML IV 1,000 ML IV ONE (07:55)
[2023-09-23] MEDS ORDERED: ZOFRAN INJ 4 MG VIAL IVP ONE (07:55)
[2023-09-23] MEDS ORDERED: TORADOL 30 MG VIAL ONE ×2 (07:56→13:37)
[2023-09-23] MEDS ORDERED: NS 1,000 ML IV 1,000 ML ONE (07:56)
[2023-09-23] MEDS ORDERED: ZOFRAN INJ 4 MG VIAL ONE (07:56)
[2023-09-23 08:11] LABS: BILIRUBIN,URINE NEGATIVE (NEGATIVE); BLOOD/HEMOGLOBIN,URINE 1+ (NEGATIVE); GLUCOSE, URINE NEGATIVE (NEGATIVE); KETONES,URINE NEGATIVE (NEGATIVE); LEUKOCYTE ESTERASE ,URINE NEGATIVE (NEGATIVE); NITRITES,URINE NEGATIVE (NEGATIVE); PROTEIN,URINE NEGATIVE (NEGATIVE); UROBILINOGEN,URINE NORMAL (NORMAL)
[2023-09-23 08:13] LABS: HEMOGLOBIN 13.3 g/dL (12.0-16.0); MEAN CORPUSCULAR HEMOGLOBIN 31.3 pg (27.0-34.0); RED CELL DISTRIBUTION WIDTH 13.6 % (11.6-16.5)
--- NOTE | 2023-09-23 08:16 | ED.ABDFE ---
HPI Time Seen Time Seen by Provider: 09/23/23 08:15 PCP Primary Care Physician: Uriel Haas Doctors Chief Complaint Comments: 58 y/o female presents for evaluation. Patient was fine yesterday, went to bed feeling well. Awoke in the early a.m. hours with pain across lower abdomen. Pain is sharp, radiates into the rectum, pressure sensation in the rectum. Patient moved her bowels normally yesterday, normally before bed.. She took MiraLAX and drank coffee, did not have a bowel movement, took more MiraLAX. She denies any fever, nausea, vomiting. No bladder issues. No true chills, but feels a bit cold. URI symptoms. Does have a distant history of diverticulitis. No history of abdominal surgeries. Last colonoscopy was 1 year ago, had 1 polyp and diverticulosis. No blood in the stools. Chief Complaint:: Patient states she woke at 0230 hrs with severe bilateral lower quad pain and pain at rectum. She states she had a normal BM last night prior to bed. COVID-19 Coronavirus risk:travel/contact w/high risk person: No Has patient experienced Coronavirus symptoms: No Reviewed Nurses Notes Review: Yes Source History Provided: Patient Mode of arrival Mode of Arrival: Ambulatory Timing Onset of Chief Complaint: 09/23/23 PMH PMH Past Medical History: Yes Past Medical History: Depression, Dyslipidemia, GERD and Hypertension Past Surgical History: Yes Surgical History: , Cholecystectomy, Hysterectomy, Ortho Surgery and Tonsillectomy Family History History of Family Medical Conditions: Yes Family Medical History: Cancer, Heart Failure and Hypertension Social History Does patient currently use any type of tobacco product: Yes Have you used tobacco products in the last 12 months: Yes Type of Tobacco Use: Cigarettes Does any household member use tobacco: Yes Alcohol Use: None Do you use any recreational Drugs:: No Lives With: Spouse Lives Where: Home Travel Risk Coronavirus risk:travel/contact w/high risk person: No Has patient experienced Coronavirus symptoms: No Infectious screening In the last 2 months have you had wt loss of >10#?: NO Have you had fever, night sweats or hemotysis?: No Have you traveled outside the country in the last 6 months?: No Isolation: Standard ROS Review of Systems Constitutional: No Symptoms Reported Eyes: No Symptoms Reported ENTM: No Symptoms Reported Respiratoy: No Symptoms Reported Cardiovascular: No Symptoms Reported Gastrointestinal/Abdominal: See HPI Genitourinary: No Symptoms Reported Neurological: No Symptoms Reported Musculoskeletal: No Symptoms Reported Integumentary: No Symptoms Reported Hematologic/Lymphatic: No Symptoms Reported All Other Systems: Reviewed and Negative PE Vital Signs Vitals: Vital Signs Temperature 98.2 F Pulse Rate 82 Respiratory Rate 20 Respiratory Rate 16 Blood Pressure 118/57 O2 Sat by Pulse Oximetry 99 General General Appearance: Alert and In No Apparent Distress Eyes Eye exam: PERRL and EOMI ENT ENT Exam: Normal Oropharynx and Mucous Membranes Moist Neck Neck Exam: Normal Inspection Respiratory Respiratory Exam: Normal Lung Sounds Bilat; negative Accessory Muscle Use or Respiratory Distress Cardiovascular Cardiovascular Exam: Regular Rate, Normal Rhythm and Normal Heart Sounds Abdominal Exam Abdominal Exam: Normal Bowel Sounds, Soft and Tenderness (LLQ, with guarding, no rebound. ) Back Back Exam: Normal Inspection Extremeties Extremities Exam: Normal Inspection and Full ROM; negative Edema Neurologic Neurological Exam: Alert, Oriented X3 and CN II-XII Intact; negative Motor Sensory Deficit Skin Skin Exam: Warm and Dry COURSE Treatment Treatment: 58-year-old female with lower abdominal pain this a.m., rectal pressure. Workup initiated. Patient was given Toradol, feeling better with that. Most likely diverticulitis, given her prior history. CBC shows elevated white count 18,000. Will pursue a CT of the abdomen pelvis with IV contrast. 1035 -CT shows sigmoid/rectal diverticulitis. Recommend admission for IV antibiotics, IV fluids, pain control. Discussed with Dr. Trevino, accepts admission. Patient allergic to Flagyl, will treat with IV Zosyn, anticipate discharge on p.o. Augmentin. [facility] Labs Reviewed 09/23/23 07:52 09/23/23 07:52 Laboratory: WBC 18.6 X10^3/uL (3.6-10.0) H 09/23/23 07:52 RBC 4.25 X10^6/uL (3.5-5.4) 09/23/23 07:52 Hgb 13.3 g/dL (12.0-16.0) 09/23/23 07:52 Hct 40.9 % (36.0-47.0) 09/23/23 07:52 MCV 96.2 fL (80.0-100.0) 09/23/23 07:52 MCH 31.3 pg (27.0-34.0) 09/23/23 07:52 MCHC 32.5 g/dL (33.0-35.0) L 09/23/23 07:52 RDW 13.6 % (11.6-16.5) 09/23/23 07:52 Plt Count 390 X10^3/uL (150.0-450.0) 09/23/23 07:52 Plt Count Comment Cancelled 09/23/23 07:52 MPV 7.8 fL (7.4-11.0) 09/23/23 07:52 Neut % (Auto) 76.8 % (42.0-75.0) H 09/23/23 07:52 Lymph % (Auto) 13.1 % (21.0-51.0) L 09/23/23 07:52 [place] % (Auto) 7.7 % (0.0-13.0) 09/23/23 07:52 Eos % (Auto) 1.9 % (0.9-2.9) 09/23/23 07:52 Baso % (Auto) 0.5 % (0.2-1.0) 09/23/23 07:52 Neut # (Auto) 14.3 x10^3/uL (2.2-4.8) H 09/23/23 07:52 Lymph # (Auto) 2.4 X10^3/uL (1.3-2.9) 09/23/23 07:52 [place] # (Auto) 1.4 x10^3/uL (0.3-0.8) H 09/23/23 07:52 Eos # (Auto) 0.3 x10^3/uL (0.0-0.2) H 09/23/23 07:52 Baso # (Auto) 0.1 X10^3/uL (0.0-0.1) 09/23/23 07:52 Absolute Nucleated RBC 0.1 /100WBC 09/23/23 07:52 Total Counted Cancelled 09/23/23 07:52 Neutrophils % (Manual) Cancelled 09/23/23 07:52 Band Neutrophils % Cancelled 09/23/23 07:52 Lymphocytes % (Manual) Cancelled 09/23/23 07:52 Monocytes % (Manual) Cancelled 09/23/23 07:52 Eosinophils % (Manual) Cancelled 09/23/23 07:52 Basophils % (Manual) Cancelled 09/23/23 07:52 Metamyelocytes % Cancelled 09/23/23 07:52 Myelocytes % Cancelled 09/23/23 07:52 Promyelocytes % Cancelled 09/23/23 07:52 Nucleated RBCs Cancelled 09/23/23 07:52 Atypical Lymphocytes Cancelled 09/23/23 07:52 Blast Cells Cancelled 09/23/23 07:52 Smudge Cells Cancelled 09/23/23 07:52 Toxic Granulation Cancelled 09/23/23 07:52 Dohle Bodies Cancelled 09/23/23 07:52 Katlin Rods Cancelled 09/23/23 07:52 Plt Clumps, EDTA Cancelled 09/23/23 07:52 Giant Platelets Cancelled 09/23/23 07:52 Plt Morphology Comment Cancelled 09/23/23 07:52 RBC Morphology Cancelled 09/23/23 07:52 Dimorphic RBCs Cancelled 09/23/23 07:52 Polychromasia Cancelled 09/23/23 07:52 Hypochromasia Cancelled 09/23/23 07:52 Poikilocytosis Cancelled 09/23/23 07:52 Basophilic Stippling Cancelled 09/23/23 07:52 Anisocytosis Cancelled 09/23/23 07:52 Microcytosis Cancelled 09/23/23 07:52 Macrocytosis Cancelled 09/23/23 07:52 Spherocytes Cancelled 09/23/23 07:52 Pappenheimer Bodies Cancelled 09/23/23 07:52 Sickle Cells Cancelled 09/23/23 07:52 Target Cells Cancelled 09/23/23 07:52 Tear Drop Cells Cancelled 09/23/23 07:52 Ovalocytes Cancelled 09/23/23 07:52 Stomatocytes Cancelled 09/23/23 07:52 Helmet Cells Cancelled 09/23/23 07:52 [place] Bodies Cancelled 09/23/23 07:52 [place] Rings Cancelled 09/23/23 07:52 [place] Cells Cancelled 09/23/23 07:52 Crenated Cell Cancelled 09/23/23 07:52 Acanthocytes (Spur) Cancelled 09/23/23 07:52 Rouleaux Cancelled 09/23/23 07:52 Schistocytes Cancelled 09/23/23 07:52 Sodium 138 mmol/L (136-145) 09/23/23 07:52 Corrected Sodium TNP 09/23/23 07:52 Potassium 3.6 mmol/L (3.5-5.1) 09/23/23 07:52 Chloride 99 mmol/L (98-107) 09/23/23 07:52 Carbon Dioxide 29.6 mmol/L (21-32) 09/23/23 07:52 BUN 14 mg/dL (7-18) 09/23/23 07:52 Creatinine 0.90 mg/dL (0.55-1.02) 09/23/23 07:52 Est GFR (MDRD) Af Amer > 60 (>60) 09/23/23 07:52 Est GFR (MDRD) Non-Af > 60 (>60) 09/23/23 07:52 Glucose 94 mg/dL (65-99) 09/23/23 07:52 Lactic Acid 0.7 mmol/L (0.4-2.0) 09/23/23 08:28 Calcium 8.9 mg/dL (8.5-10.1) 09/23/23 07:52 Corrected Calcium TNP 09/23/23 07:52 Total Bilirubin 0.30 mg/dL (0.2-1.0) 09/23/23 07:52 AST 12 Units/L (15-37) L 09/23/23 07:52 ALT 14 Units/L (12-78) 09/23/23 07:52 Alkaline Phosphatase 73 Units/L (46-116) 09/23/23 07:52 Total Protein 7.6 g/dL (6.4-8.2) 09/23/23 07:52 Albumin 3.6 g/dL (3.4-5.0) 09/23/23 07:52 Globulin 4.0 g/dL (2.5-4.5) 09/23/23 07:52 Albumin/Globulin Ratio 0.9 Ratio (1.1-2.1) L 09/23/23 07:52 Amylase 62 Units/L (25-115) 09/23/23 07:52 Lipase 43 Units/L (16-77) 09/23/23 07:52 Specimen Type Clean catch urine 09/23/23 07:43 Urine Color Yellow (YELLOW) 09/23/23 07:43 Urine Appearance Clear (CLEAR) 09/23/23 07:43 Urine pH 6.0 (5.0 - 8.0) 09/23/23 07:43 Ur Specific [place] 1.015 (1.000-1.030) 09/23/23 07:43 Urine Protein Negative (NEGATIVE) 09/23/23 07:43 Urine Glucose (UA) Negative (NEGATIVE) 09/23/23 07:43 Urine Ketones Negative (NEGATIVE) 09/23/23 07:43 Urine Blood 1+ (NEGATIVE) 09/23/23 07:43 Urine Nitrite Negative (NEGATIVE) 09/23/23 07:43 Urine Bilirubin Negative (NEGATIVE) 09/23/23 07:43 Urine Urobilinogen Normal (NORMAL) 09/23/23 07:43 Ur Leukocyte Esterase Negative (NEGATIVE) 09/23/23 07:43 Urine RBC 3-5 /HPF (0-3) A 09/23/23 07:43 Urine WBC None seen /HPF (0-5) 09/23/23 07:43 Ur Squamous Epith Cells Few /HPF (NEGATIVE) 09/23/23 07:43 Urine Bacteria Trace /HPF (NEGATIVE) 09/23/23 07:43 Urine Mucus Rare /HPF (NEGATIVE) 09/23/23 07:43 Urine Yeast Rare /HPF (NEGATIVE) 09/23/23 07:43 Ur Culture Indicated? No/not indicated 09/23/23 07:43 Opioid Opioid Risk Tool Age (José Miguel box if 16-45): No History of Preadolescent Sexual Abuse: No Total: 0 Total Score Risk Category: Low Risk Copyright: Christoph NAGEL predicting aberrant behaviors Discharge Plan Diagnosis Discharge Problem: Acute diverticulitis Discharge Plan Patient Disposition: 09 ADMITTED INPATIENT Condition: Stable Prescriptions: No Action atorvastatin 20 mg tablet 20 mg PO QPM Qty: 90 3RF montelukast 10 mg tablet 10 mg PO QPM Qty: 90 3RF bupropion HCl 150 mg tablet sustained-release 12 hr 150 mg PO QDAY Qty: 90 0RF albuterol sulfate 90 mcg/actuation HFA aerosol inhaler 1 puff PO Q4-6H PRN (Reason: for wheezing) Qty: 6.7 3RF metoprolol succinate 50 mg tablet extended release 24 hr 25 mg PO QDAY carisoprodol [Soma] 350 mg tablet 350 mg PO TID MDD 4 tablets PRN (Reason: muscle pain/muscle spasm) 20 Days Qty: 60 0RF clonazepam 1 mg tablet 1 mg PO BID MDD 2 mg / 2 tablets PRN (Reason: Anxiety/insomnia) 30 Days Qty: 60 0RF acetaminophen-codeine 300-30 mg tablet 1 tab PO Q8H MDD 3 tablets PRN (Reason: pain) 30 Days Qty: 90 0RF nystatin 100,000 unit/mL suspension 10 ml PO TID 5 Days Qty: 150 0RF Rx Instructions: swish and swallow cyproheptadine 4 mg tablet 4 mg PO QID pantoprazole 40 mg tablet,delayed release (DR/EC) 40 mg PO BID progesterone micronized 100 mg capsule 1 cap PO QPM estradiol 10 mcg tablet 1 tab vaginal 2XW Health Concerns: Post Hospitalization: new medications and changes needed to prevent readmission or further decline. Pt educated and given instructions on all concerns. Plan of Treatment: Continue with present treatment and follow up plan. Pt is to keep follow up appointment as instructed and take medications as ordered. Orders to Discharge Patient Discharge Orders: Transfer (Routine); Ordered 09/23/23 Ordered By: Carter Smith Follow ups/Referrals Follow ups/Referrals: Luca Trevino [Primary Care Provider] - 3 days
[2023-09-23 08:18] LABS: BASOPHILS # (AUTO) 0.1 X10^3/uL (0.0-0.1); BASOPHILS % (AUTO) 0.5 % (0.2-1.0); EOSINOPHILS # (AUTO) 0.3 x10^3/uL (0.0-0.2); EOSINOPHILS % (AUTO) 1.9 % (0.9-2.9); HEMATOCRIT 40.9 % (36.0-47.0); LYMPHOCYTES # (AUTO) 2.4 X10^3/uL (1.3-2.9); LYMPHOCYTES % (AUTO) 13.1 % (21.0-51.0); MEAN CORPUSCULAR HGB CONC 32.5 g/dL (33.0-35.0); MEAN CORPUSCULAR VOLUME 96.2 fL (80.0-100.0); MEAN PLATELET VOLUME 7.8 fL (7.4-11.0); MONOCYTES # (AUTO) 1.4 x10^3/uL (0.3-0.8); MONOCYTES % (AUTO) 7.7 % (0.0-13.0); NEUTROPHILS # (AUTO) 14.3 x10^3/uL (2.2-4.8); NEUTROPHILS % (AUTO) 76.8 % (42.0-75.0); PLATELET COUNT 390 X10^3/uL (150.0-450.0); RED BLOOD COUNT 4.25 X10^6/uL (3.5-5.4); WHITE BLOOD COUNT 18.6 X10^3/uL (3.6-10.0)
[2023-09-23 08:20] LABS: ALANINE AMINOTRANSFERASE 14 Units/L (12-78); ALBUMIN 3.6 g/dL (3.4-5.0); ALKALINE PHOSPHATASE 73 Units/L (46-116); AMYLASE 62 Units/L (25-115); ASPARTATE AMINO TRANSFERASE 12 Units/L (15-37); BLOOD UREA NITROGEN 14 mg/dL (7-18); CALCIUM 8.9 mg/dL (8.5-10.1); CARBON DIOXIDE 29.6 mmol/L (21-32); CHLORIDE 99 mmol/L (98-107); GLUCOSE 94 mg/dL (65-99); LIPASE 43 Units/L (16-77); POTASSIUM 3.6 mmol/L (3.5-5.1); SODIUM 138 mmol/L (136-145); TOTAL PROTEIN 7.6 g/dL (6.4-8.2); eGFR NON BLACK RACES > 60 (>60)
[2023-09-23 08:22] LABS: APPEARANCE,URINE CLEAR (CLEAR); BACTERIA,URINE TRACE /HPF (NEGATIVE); COLOR,URINE YELLOW (YELLOW); SQUAMOUS EPITHELIAL CELL,UR FEW /HPF (NEGATIVE); YEAST,URINE RARE /HPF (NEGATIVE)
[2023-09-23] MEDS ORDERED: NS 100 ML IV 100 ML ONE ×2 (08:59→10:52)
[2023-09-23] MEDS ORDERED: OMNIPAQUE 350 mg/mL 100 mL BTL 100 ML ONE (08:59)
--- NOTE | 2023-09-23 10:17 | CT ---
EXAM:ABDCMEN/PELVIS WITH CONHISTORY:LLQ PAIN, RECTAL PAIN;COMPARISON:None.TECHNIQUE:Multiple axial images of the abdomen and pelvis were obtained from the lung bases to the pubic symphysis after the administration of IV contrast. Dose reduction techniques including Automated Exposure Control (AEC) and adjustment of mA and kV were utilized.FINDINGS:The included lung bases are clear. There is no evidence of a pleural effusion or pericardial effusion. The heart size is normal. No free air is seen below the diaphragm. Gallbladder is surgically absent. No acute abnormalities of the liver, spleen, pancreas, or adrenal glands. The kidneys enhance in a timely fashion without evidence of hydronephrosis. A subcentimeter exophytic hypodensity arising from the upper posterior pole of the left kidney is too small for accurate characterization but appears slightly more dense than simple fluid. There are athero sclerotic changes affiliated with the abdominal aorta contiguous with the iliofemoral tributaries. No aneurysm is identified.There is no evidence of bowel obstruction. A normal appendix is confirmed. In the left lower quadrant, there is concentrated diverticulosis associated with the sigmoid segment. There is localized acute pericolonic inflammatory stranding at the rectosigmoid junction associated with a large, protuberant diverticulum, as seen on axial images 74 through 76. This appears to communicate directly with the bowel wall. No extraluminal gas is otherwise noted. No bowel pneumatosis is identified. No organized pericolonic fluid collections/abscess identified. And mild colonic Haustral fold there is associated thickening where inflammatory stranding is most conspicuous. The lumen of the rectosigmoid colon is locally underdistended where there is accumulation of moderate stool proximal to this region of interest. No other sites of acute inflammatory stranding with respect to the large or small bowel segments. The bladder appears normal in morphology. The uterus is surgically absent. There are no pathologically enlarged abdominal or pelvic lymph nodes. Assessment of the osseous structures reveals no aggressive bony lesions or acute osseous abnormalities. Multilevel discogenic degenerative changes, spondylosis and facet hypertrophy of the lumbar spine are observed.IMPRESSION:Significant sigmoid diverticulosis and superimposed moderate acute diverticulitis centered at the rectosigmoid junction. Recommend follow-up examination within 6-8 weeks after initial conservative treatment measures have been performed utilizing colonoscopy to assess resolution of wall thickeningTargeted ultrasound suggested of the left kidney to evaluate small exophytic lesion not fulfilling criteria for simple cystTHIS IS AN ELECTRONICALLY VERIFIED FINAL REPORT09/23/2023 10:14 AM - Electronically signed by Wade Costello MD
[2023-09-23] MEDS ORDERED: ZOSYN VIAL 3.375 GRAMS 3.375 G in NS 100 ML IV 100 ML IV ONE (10:51)
[2023-09-23] MEDS ORDERED: D5 1/2 NS 1,000 ML 1,000 ML IV ONE (10:52)
[2023-09-23] MEDS ORDERED: ZOSYN VIAL 3.375 GRAMS IV ONE (10:52)
[2023-09-23] MEDS ORDERED: D5 1/2 NS 1,000 ML 1,000 ML IV SCH (12:00)
[2023-09-23] MEDS ORDERED: CONSULT PHARMACY - POTASSIUM & MAGNESIUM XX SCH ×2 (13:31→21:00)
[2023-09-23] MEDS ORDERED: MORPHINE SULFATE INJ 4 MG IVP PRN (13:31)
[2023-09-23] MEDS ORDERED: VENTOLIN or PROAIR HFA INH PRN (13:31)
[2023-09-23] MEDS ORDERED: KLONOPIN TAB 1 MG PO PRN (13:31)
[2023-09-23] MEDS: ZOSYN VIAL 3.375 GRAMS 3.375 G in NS 100 ML IV 100 ML IV SCH ×2 (13:34→22:30)
[2023-09-23] MEDS: D5 1/2 NS 1,000 ML 1,000 ML IV SCH ×3 (13:35→22:19)
[2023-09-23] MEDS: TORADOL 30 MG VIAL IVP PRN ×2 (13:40→19:13)
[2023-09-23] MEDS: PROTONIX INJ 40 MG VIAL IVP SCH (14:35)
[2023-09-23] MEDS ORDERED: K-DUR TAB 20 MEQ PO SCH (15:00)
[2023-09-23] MEDS: CIPRO IV 400 MG PREMIX* 400 MG/200 ML IV.SOLN. IV SCH ×2 (18:15→20:49)
[2023-09-23] MEDS ORDERED: ZOFRAN INJ 4 MG VIAL IVP PRN (18:47)
[2023-09-23] MEDS ORDERED: SINGULAIR TAB 10 MG PO SCH (21:00)
[2023-09-23] MEDS ORDERED: LIPITOR TAB 20 MG PO SCH (21:00)
--- NOTE | 2023-09-23 21:06 | DR.H&P ---
H&P History & Physical for Day of: H&P Date: 09/23/23 Chief Complaint Chief Complaint: Acute left lower quadrant abdominal pain radiating to the rectum. Allergies Allergies Allergy/AdvReac Type Severity Reaction Status Date / Time metronidazole [From Flagyl] Allergy Unknown Verified 02/24/23 10:54 venlafaxine [From Effexor] Allergy Verified 02/24/23 10:54 History of Present Illness History of Present Illness: This is a pleasant 58-year-old white female well-kn own to me. The patient awoke early this morning with acute left lower quadrant abdominal pain that was radiating toward her rectum. She had no rebound tenderness but was guarding the left lower quadrant. The patient tried taking MiraLAX a few times, but this did not give her any relief with the passing of her bowels. She felt fine the night before going to bed and was not having any abdominal pain. As the pain continued to get worse, she decided to go to the [facility] emergency department for further evaluation and treatment. Workup in the [facility] emergency department revealed that the patient had a white blood cell count of 18,600. A CT scan of the abdomen/pelvis with IV contrast showed that the patient had rectosigmoid diverticulitis without abscess. The patient was also shown to have some diverticulosis as well. The patient does report that many years ago, she did have one flareup of diverticulitis before, but none since then. An incidental complex cyst is seen in the left kidney's posterior pole. The radiologist recommended a focused kidney ultrasound to better classify what he is seeing. The patient reports that she is allergic to Flagyl, so instead of using it to treat diverticulitis along with Cipro, we will treat her with Zosyn and Ciprofloxacin. We will continue her on IV hydration along with IV ketorolac for pain. Past Medical History Past Medical History: Anxiety, Arthritis, COPD, Depression, Dyslipidemia, GERD and Hypertension Additional Medical History: History of 1 previous episode of diverticulitis many years ago. History of diverticulosis. Past Surgical History Surgical History: , Cholecystectomy, Hysterectomy, Ortho Surgery and Tonsillectomy Family History Family Medical History: Cancer, Heart Failure and Hypertension Social History Does patient currently use any type of tobacco product: Yes (Cigarettes) Have you used tobacco products in the last 12 months: Yes Type of Tobacco Use: Cigarettes Does any household member use tobacco: Yes Alcohol Use: None Medications Home Medications: Home Medications Medication Instructions Recorded Confirmed Type estradiol 10 mcg vaginal tablet 1 tab vaginal 2XW 02/03/23 09/23/23 History progesterone micronized 100 mg 1 cap PO QPM 02/03/23 09/23/23 History capsule metoprolol succinate 50 mg 25 mg PO QDAY 02/12/23 09/23/23 History tablet,extended release 24 hr cyproheptadine 4 mg tablet 4 mg PO QID 09/23/23 09/23/23 History pantoprazole 40 mg tablet,delayed 40 mg PO BID 09/23/23 09/23/23 History release Labs 09/23/23 07:52 09/23/23 07:52 Labs: Laboratory WBC 18.6 X10^3/uL (3.6-10.0) H 09/23/23 07:52 RBC 4.25 X10^6/uL (3.5-5.4) 09/23/23 07:52 Hgb 13.3 g/dL (12.0-16.0) 09/23/23 07:52 Hct 40.9 % (36.0-47.0) 09/23/23 07:52 MCV 96.2 fL (80.0-100.0) 09/23/23 07:52 MCH 31.3 pg (27.0-34.0) 09/23/23 07:52 MCHC 32.5 g/dL (33.0-35.0) L 09/23/23 07:52 RDW 13.6 % (11.6-16.5) 09/23/23 07:52 Plt Count 390 X10^3/uL (150.0-450.0) 09/23/23 07:52 Plt Count Comment Cancelled 09/23/23 07:52 MPV 7.8 fL (7.4-11.0) 09/23/23 07:52 Neut % (Auto) 76.8 % (42.0-75.0) H 09/23/23 07:52 Lymph % (Auto) 13.1 % (21.0-51.0) L 09/23/23 07:52 Nobles % (Auto) 7.7 % (0.0-13.0) 09/23/23 07:52 Eos % (Auto) 1.9 % (0.9-2.9) 09/23/23 07:52 Baso % (Auto) 0.5 % (0.2-1.0) 09/23/23 07:52 Neut # (Auto) 14.3 x10^3/uL (2.2-4.8) H 09/23/23 07:52 Lymph # (Auto) 2.4 X10^3/uL (1.3-2.9) 09/23/23 07:52 Nobles # (Auto) 1.4 x10^3/uL (0.3-0.8) H 09/23/23 07:52 Eos # (Auto) 0.3 x10^3/uL (0.0-0.2) H 09/23/23 07:52 Baso # (Auto) 0.1 X10^3/uL (0.0-0.1) 09/23/23 07:52 Absolute Nucleated RBC 0.1 /100WBC 09/23/23 07:52 Total Counted Cancelled 09/23/23 07:52 Neutrophils % (Manual) Cancelled 09/23/23 07:52 Band Neutrophils % Cancelled 09/23/23 07:52 Lymphocytes % (Manual) Cancelled 09/23/23 07:52 Monocytes % (Manual) Cancelled 09/23/23 07:52 Eosinophils % (Manual) Cancelled 09/23/23 07:52 Basophils % (Manual) Cancelled 09/23/23 07:52 Metamyelocytes % Cancelled 09/23/23 07:52 Myelocytes % Cancelled 09/23/23 07:52 Promyelocytes % Cancelled 09/23/23 07:52 Nucleated RBCs Cancelled 09/23/23 07:52 Atypical Lymphocytes Cancelled 09/23/23 07:52 Blast Cells Cancelled 09/23/23 07:52 Smudge Cells Cancelled 09/23/23 07:52 Toxic Granulation Cancelled 09/23/23 07:52 Dohle Bodies Cancelled 09/23/23 07:52 Katlin Rods Cancelled 09/23/23 07:52 Plt Clumps, EDTA Cancelled 09/23/23 07:52 Giant Platelets Cancelled 09/23/23 07:52 Plt Morphology Comment Cancelled 09/23/23 07:52 RBC Morphology Cancelled 09/23/23 07:52 Dimorphic RBCs Cancelled 09/23/23 07:52 Polychromasia Cancelled 09/23/23 07:52 Hypochromasia Cancelled 09/23/23 07:52 Poikilocytosis Cancelled 09/23/23 07:52 Basophilic Stippling Cancelled 09/23/23 07:52 Anisocytosis Cancelled 09/23/23 07:52 Microcytosis Cancelled 09/23/23 07:52 Macrocytosis Cancelled 09/23/23 07:52 Spherocytes Cancelled 09/23/23 07:52 Pappenheimer Bodies Cancelled 09/23/23 07:52 Sickle Cells Cancelled 09/23/23 07:52 Target Cells Cancelled 09/23/23 07:52 Tear Drop Cells Cancelled 09/23/23 07:52 Ovalocytes Cancelled 09/23/23 07:52 Stomatocytes Cancelled 09/23/23 07:52 Helmet Cells Cancelled 09/23/23 07:52 Maciel[place] Bodies Cancelled 09/23/23 07:52 York Rings Cancelled 09/23/23 07:52 Lan Cells Cancelled 09/23/23 07:52 Crenated Cell Cancelled 09/23/23 07:52 Acanthocytes (Spur) Cancelled 09/23/23 07:52 Rouleaux Cancelled 09/23/23 07:52 Schistocytes Cancelled 09/23/23 07:52 Sodium 138 mmol/L (136-145) 09/23/23 07:52 Corrected Sodium TNP 09/23/23 07:52 Potassium 3.6 mmol/L (3.5-5.1) 09/23/23 07:52 Chloride 99 mmol/L (98-107) 09/23/23 07:52 Carbon Dioxide 29.6 mmol/L (21-32) 09/23/23 07:52 BUN 14 mg/dL (7-18) 09/23/23 07:52 Creatinine 0.90 mg/dL (0.55-1.02) 09/23/23 07:52 Est GFR (MDRD) Af Amer > 60 (>60) 09/23/23 07:52 Est GFR (MDRD) Non-Af > 60 (>60) 09/23/23 07:52 Glucose 94 mg/dL (65-99) 09/23/23 07:52 Lactic Acid 0.7 mmol/L (0.4-2.0) 09/23/23 08:28 Calcium 8.9 mg/dL (8.5-10.1) 09/23/23 07:52 Corrected Calcium TNP 09/23/23 07:52 Magnesium 1.9 mg/dL (2.0-2.9) L 09/23/23 07:15 Total Bilirubin 0.30 mg/dL (0.2-1.0) 09/23/23 07:52 AST 12 Units/L (15-37) L 09/23/23 07:52 ALT 14 Units/L (12-78) 09/23/23 07:52 Alkaline Phosphatase 73 Units/L (46-116) 09/23/23 07:52 Total Protein 7.6 g/dL (6.4-8.2) 09/23/23 07:52 Albumin 3.6 g/dL (3.4-5.0) 09/23/23 07:52 Globulin 4.0 g/dL (2.5-4.5) 09/23/23 07:52 Albumin/Globulin Ratio 0.9 Ratio (1.1-2.1) L 09/23/23 07:52 Amylase 62 Units/L (25-115) 09/23/23 07:52 Lipase 43 Units/L (16-77) 09/23/23 07:52 Specimen Type Clean catch urine 09/23/23 07:43 Urine Color Yellow (YELLOW) 09/23/23 07:43 Urine Appearance Clear (CLEAR) 09/23/23 07:43 Urine pH 6.0 (5.0 - 8.0) 09/23/23 07:43 Ur Specific Schneider 1.015 (1.000-1.030) 09/23/23 07:43 Urine Protein Negative (NEGATIVE) 09/23/23 07:43 Urine Glucose (UA) Negative (NEGATIVE) 09/23/23 07:43 Urine Ketones Negative (NEGATIVE) 09/23/23 07:43 Urine Blood 1+ (NEGATIVE) 09/23/23 07:43 Urine Nitrite Negative (NEGATIVE) 09/23/23 07:43 Urine Bilirubin Negative (NEGATIVE) 09/23/23 07:43 Urine Urobilinogen Normal (NORMAL) 09/23/23 07:43 Ur Leukocyte Esterase Negative (NEGATIVE) 09/23/23 07:43 Urine RBC 3-5 /HPF (0-3) A 09/23/23 07:43 Urine WBC None seen /HPF (0-5) 09/23/23 07:43 Ur Squamous Epith Cells Few /HPF (NEGATIVE) 09/23/23 07:43 Urine Bacteria Trace /HPF (NEGATIVE) 09/23/23 07:43 Urine Mucus Rare /HPF (NEGATIVE) 09/23/23 07:43 Urine Yeast Rare /HPF (NEGATIVE) 09/23/23 07:43 Ur Culture Indicated? No/not indicated 09/23/23 07:43 Review of Systems Constitutional: Weakness and Malaise Eyes: No Symptoms Reported ENT: No Symptoms Reported Respiratory: Cough and Dry; denies Hemoptysis Cardiovascular: No Symptoms Reported Gastrointestinal: Abdominal Pain and Constipation; denies Diarrhea, Melena or Hematochezia Genitourinary: No Symptoms Reported Musculoskeletal: Back Pain Skin: No Symptoms Reported Neurological: No Symptoms Reported Physical Exam Vital Signs: Vital Signs Temperature 99.8 F Temperature 99.4 F Pulse Rate [Bilateral Radial] 100 Pulse Rate [Bilateral Radial] 98 Respiratory Rate 20 Respiratory Rate 20 Respiratory Rate 20 Respiratory Rate 20 Respiratory Rate 20 Respiratory Rate 20 Blood Pressure [Left Arm] 134/96 Blood Pressure [Left Arm] 132/88 O2 Sat by Pulse Oximetry 97 O2 Sat by Pulse Oximetry 97 Oriented: Normal, Time, Person and Place Eyes: Normal Ear: Normal Nose: Normal Throat: Normal Respiratory: Clear Throughout Cardiovascular: Normal Auscultation: Bowel Sounds: Decreased Palpation: Normal Tenderness: LLQ Skin: Normal Musculoskeletal: Normal Psychiatric: Anxiety Mood Description: Calm, Depressed and Anxious; negative Angry, Fearful, Happy, Hostile, Suspicious, Withdrawn or Appropriate Affect: Normal; negative Angry, Flat, Hysterical or Violent Speech Pattern: Clear and Appropriate Assessment/Plan (1) Acute diverticulitis: Status: Acute Plan: Continue IV Zosyn and ciprofloxacin. We will also continue her on IV hydration and IV ketorolac for pain control. If she needs anything for breakthrough pain, we can order her morphine sulfate. Make her n.p.o. at this time and we will do a general surgery consultation for tomorrow morning. (2) Chronic low back pain with right-sided sciatica: Status: Acute Plan: Pain control. (3) Primary hypertension: Status: Acute Plan: Monitor daily blood pressures. We will continue her on her metoprolol succinate 50 mg 1 p.o. daily (4) Smoking greater than 30 pack years: Status: Acute Plan: Nicotine patch. (5) COPD (chronic obstructive pulmonary disease): Status: Acute Plan: DuoNebs every 6 hours. (6) Cyst of left kidney: Status: Acute Plan: Check focused ultrasound of the left kidney tomorrow to further evaluate this complex appearing cyst. Review H&P Reviewed: Yes Patient was examined?: Yes
[2023-09-23] MEDS: DUONEB 0.5 MG/3 MG (3 mL) NEB SCH (21:15)
[2023-09-24] MEDS: DUONEB 0.5 MG/3 MG (3 mL) NEB SCH ×2 (00:25→06:10)
[2023-09-24] MEDS: ZOSYN VIAL 3.375 GRAMS 3.375 G in NS 100 ML IV 100 ML IV SCH (05:21)
[2023-09-24] MEDS: D5 1/2 NS 1,000 ML 1,000 ML IV SCH ×2 (05:22→08:12)
[2023-09-24] MEDS ORDERED: TYLENOL 325 MG TAB PO PRN (06:09)
[2023-09-24 07:05] LABS: BASOPHILS % (AUTO) 0.3 % (0.2-1.0); EOSINOPHILS # (AUTO) 0.1 x10^3/uL (0.0-0.2); EOSINOPHILS % (AUTO) 0.4 % (0.9-2.9); HEMATOCRIT 35.2 % (36.0-47.0); HEMOGLOBIN 11.6 g/dL (12.0-16.0); LYMPHOCYTES # (AUTO) 2.6 X10^3/uL (1.3-2.9); LYMPHOCYTES % (AUTO) 17.7 % (21.0-51.0); MEAN CORPUSCULAR HEMOGLOBIN 31.3 pg (27.0-34.0); MEAN CORPUSCULAR HGB CONC 32.8 g/dL (33.0-35.0); MEAN CORPUSCULAR VOLUME 95.4 fL (80.0-100.0); MONOCYTES # (AUTO) 1.1 x10^3/uL (0.3-0.8); MONOCYTES % (AUTO) 7.6 % (0.0-13.0); NEUTROPHILS # (AUTO) 10.8 x10^3/uL (2.2-4.8); PLATELET COUNT 328 X10^3/uL (150.0-450.0); RED BLOOD COUNT 3.69 X10^6/uL (3.5-5.4); RED CELL DISTRIBUTION WIDTH 13.8 % (11.6-16.5); WHITE BLOOD COUNT 14.6 X10^3/uL (3.6-10.0)
[2023-09-24 07:19] LABS: ALANINE AMINOTRANSFERASE 10 Units/L (12-78); ALBUMIN 2.6 g/dL (3.4-5.0); ALKALINE PHOSPHATASE 61 Units/L (46-116); ASPARTATE AMINO TRANSFERASE 9 Units/L (15-37); BLOOD UREA NITROGEN 9 mg/dL (7-18); CALCIUM 8.3 mg/dL (8.5-10.1); CARBON DIOXIDE 25.7 mmol/L (21-32); CHLORIDE 104 mmol/L (98-107); COR CA(FOR HYPOALB) 9.4 mg/dL (8.5-10.1); COR NA(FOR HYPERGLY) 140 mmol/L (136-145); GLUCOSE 114 mg/dL (65-99); MAGNESIUM 1.9 mg/dL (2.0-2.9); POTASSIUM 3.7 mmol/L (3.5-5.1); SODIUM 140 mmol/L (136-145); TOTAL PROTEIN 6.3 g/dL (6.4-8.2); eGFR NON BLACK RACES 54 (>60)
[2023-09-24] MEDS: TORADOL 30 MG VIAL IVP PRN (07:52)
[2023-09-24 07:53] VITALS: RESP 18
[2023-09-24] MEDS: CIPRO IV 400 MG PREMIX* 400 MG/200 ML IV.SOLN. IV SCH (08:11)
[2023-09-24] MEDS: PROTONIX INJ 40 MG VIAL IVP SCH (08:12)
[2023-09-24] MEDS ORDERED: WELLBUTRIN SR 150 MG (BID) PO SCH (09:00)
[2023-09-24] MEDS ORDERED: TOPROL XL PO SCH (09:00)
[2023-09-24] MEDS ORDERED: MAG-OX TAB PO SCH (10:00)
[2023-09-24] MEDS ORDERED: K-DUR TAB 20 MEQ PO NR (10:00)
[2023-09-24] MEDS ORDERED: CONSULT PHARMACY - POTASSIUM & MAGNESIUM XX SCH (10:00)
[2023-09-24 11:51] VITALS: BP 107/52; PULSE 79; TEMP 98.2; O2SAT 96
--- NOTE | 2023-09-24 14:04 | US ---
EXAM:RENAL SCANHISTORY:Left renal lesion-COMPARISON:CT 09/23/2023TECHNIQUE:Multiple carey scale and color flow Doppler images of the kidneys were obtained. The region of the urinary bladder was evaluated as well.FINDINGS:The right kidney measures 10.6 cm in length .No focal mass, stones or hydronephrosis are seen.The left kidney measures 10.3 cm in length. No nephrolithiasis or hydronephrosis is seen. 10 mm simple cyst is seen in the lower pole as seen on CT. The questionable lesion seen in the upper pole on CT is not identified on this study.The region of the urinary bladder is grossly unremarkable. Bladder is distended to 248 cc.IMPRESSION:10 mm simple cyst is seen in the lower pole of the left kidney. The questionable lesion described in the upper pole on CT is not identified on this study. It should be further evaluated with contrast-enhanced MRI of the kidneys.THIS IS AN ELECTRONICALLY VERIFIED FINAL REPORT09/24/2023 2:01 PM - Electronically signed by Anthony Estevez MD
== END 2023-09-24 12:10 | disposition home or self-care (01) ==
LOC: ER 07:26 → MED/SURG 07:26
PROVIDERS: ADMIT Family Medicine; ATTEND Family Medicine